=== PATIENT | female | born 1995 | race Caucasian/White ===

== ENCOUNTER 2020-03-21 18:36 | Inpatient (IN) ==
[~2020-03-21 18:36] MED LIST: *HR* FentaNYL (PF) 100 MCG/2 ML VIAL IVP PRN; Azithromycin 500 MG in 0.9 % Sodium Chloride 250 ML IVPB PRN; Famotidine 20 MG/2 ML VIAL IVP PRN; Lidocaine 1% 20 ML MDV INFILT PRN; Metoclopramide 10 MG/2 ML VIAL IVP PRN; Naloxone 0.4 MG/ML INJ IVP PRN; Ondansetron 4 MG/2 ML VIAL IVP PRN; Ringers Solution, Lactated 1,000 ML IVC SCH
[2020-03-21 19:23] LABS: Basophils % 0.2 %; Eosinophils % 0.2 %; Hematocrit 34.3 % (35.3-44.9); Hemoglobin 11.2 g/dL (11.5-15.4); Immature Granulocytes % 0.4 % (0-4); Lymphocytes # 2.6 K/mcL (0.6-4.6); Lymphocytes % 21.2 %; Mean Corpuscular HGB Conc 32.7 g/dL (31.6-35.5); Mean Corpuscular Hemoglobin 28.7 pg (28.0-33.3); Mean Corpuscular Volume 87.9 fL (83.0-100.0); Mean Platelet Volume 11.8 fL (9.4-12.4); Monocytes # 0.7 K/mcL (0.0-1.3); Monocytes % 5.6 %; Neutrophils # 8.7 K/mcL (1.6-8.9); Platelet Count 227 K/mcL (140-400); Segmented Neutrophils % 72.4 %; White Blood Count 12.1 K/mcL (4.3-11.1)
[2020-03-21 19:32] LABS: Amphetamine Screen,Urine Negative ng/mL (Cutoff=1000); Barbiturate Screen,Urine Negative ng/mL (Cutoff=200); Benzodiazepines Screen,Urine Negative ng/mL (Cutoff=200); Cannabinoid Screen,Urine Negative ng/mL (Cutoff = 50); Cocaine Screen,Urine Negative ng/mL (Cutoff= 300); Opiate Screen,Urine Negative ng/mL (Cutoff=300); Phencyclidine Screen,Urine Negative ng/mL (Cutoff=25)
[2020-03-21] MEDS ORDERED: Ondansetron 4 MG/2 ML VIAL IVP PRN (21:20)
[2020-03-21] MEDS ORDERED: Naloxone 0.4 MG/ML INJ IVP PRN (21:20)
[2020-03-21] MEDS ORDERED: EPHEDrine 50 MG/ML VIAL IVP PRN (21:20)
[2020-03-21] MEDS ORDERED: Ropivacaine/PF 0.2% 20 ML VIAL EP ONE (21:20)
[2020-03-21] MEDS ORDERED: *HR* FentaNYL (PF) 100 MCG/2 ML VIAL EP ONE (21:20)
[2020-03-21] MEDS ORDERED: Bupivacaine-MPF 0.25% 10 ML VIAL EP ONE (21:20)
[2020-03-21] MEDS ORDERED: Epidural Premix (fent/bupiv) 110 ML EP SCH (21:30)
[2020-03-21] MEDS ORDERED: Ropivacaine/PF 0.2% 20 ML VIAL ONE (21:39)
[2020-03-21] MEDS: Oxytocin 20 units/ LR 1000 mL 20 UNIT/1,000 ML BAG IVC SCH (23:39)
[2020-03-22] MEDS ORDERED: Ibuprofen 600 MG TABLET PO ONE ×2 (12:09→12:11)
[2020-03-22] MEDS: Oxytocin 20 units/ LR 1000 mL 20 UNIT/1,000 ML BAG IVC SCH (12:30)
[2020-03-22] MEDS ORDERED: Methylergonovine 0.2 MG/ML AMPUL IM ONE (13:30)
[2020-03-22] MEDS ORDERED: Oxytocin 20 units/ LR 1000 mL 20 UNIT/1,000 ML BAG IVC SCH (14:10)
[2020-03-22] MEDS ORDERED: Acetaminophen 325 MG TABLET PO PRN (14:10)
[2020-03-22] MEDS ORDERED: Lanolin 7 G OINT...G. TP PRN (14:10)
[2020-03-22] MEDS ORDERED: Benzocaine/Menthol 56 GM AEROSOL SPRAY TP PRN (14:10)
[2020-03-22] MEDS ORDERED: Measles/Mumps/Rubella Vacc 0.5 ML VIAL SQ PRN (14:10)
[2020-03-22] MEDS: Ibuprofen 600 MG TABLET PO PRN (20:53)
[2020-03-23 05:18] LABS: Basophils # 0.1 K/mcL (0.0-0.2); Basophils % 0.3 %; Eosinophils % 0.1 %; Hematocrit 22.3 % (35.3-44.9); Immature Granulocytes % 0.7 % (0-4); Lymphocytes # 3.6 K/mcL (0.6-4.6); Lymphocytes % 18.2 %; Mean Corpuscular HGB Conc 33.2 g/dL (31.6-35.5); Mean Corpuscular Hemoglobin 29.5 pg (28.0-33.3); Mean Corpuscular Volume 88.8 fL (83.0-100.0); Mean Platelet Volume 11.8 fL (9.4-12.4); Monocytes # 1.4 K/mcL (0.0-1.3); Monocytes % 7.1 %; Neutrophils # 14.4 K/mcL (1.6-8.9); Platelet Count 197 K/mcL (140-400); Red Blood Count 2.51 M/mcL (3.82-4.97); Red Cell Distribution Width 13.2 % (11.5-14.5); Segmented Neutrophils % 73.6 %
[2020-03-23 05:21] LABS: Hemoglobin 7.4 g/dL (11.5-15.4); White Blood Count 19.5 K/mcL (4.3-11.1)
[2020-03-23 07:49] VITALS: BP 104/70
[2020-03-23] MEDS: Ibuprofen 600 MG TABLET PO PRN (07:52)
[2020-03-23] MEDS ORDERED: Prenatal Vit/FA 1 EACH TABLET PO SCH (09:00)
== END 2020-03-23 13:31 | disposition home or self-care (01) | DRG 560 ==
LOC: 1NENULAB → 1NENUOBS 03-22 13:27
PROVIDERS: ADMIT Obstetrics & Gynecology; ATTEND Obstetrics & Gynecology